=== PATIENT | male | born 1985 | race Caucasian/White ===

== ENCOUNTER 2017-08-01 00:08 | Emergency (ER) | payer OTHER ==
[~2017-08-01] VITALS: Ht 196.8 cm; Wt 113.6 kg
[~2017-08-01 00:08] MED LIST: HYDR-4003 PO
[2017-08-01 00:15] VITALS: BP 127/79; PULSE 91; RESP 16; O2SAT 97
--- NOTE | 2017-08-01 02:00 | ED.REPORT ---
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 He c/o associated eye irritation with erythema onset yesterday afternoon. He denies any other symptoms. Pt reports that he thinks that he has another laceration on his right eye as the pain began shortly after removing his contacts. He states that his eye pressure is variable ranging from 24 to 72 and he takes medication for this. The pt wears the contact in his right eye to help improve his vision. Nursing Notes Stated Complaint: RT EYE INJURY Chief Complaint: Eye Nursing Notes Reviewed: Yes Allergies: Coded Allergies: No Known Allergies (Unverified , 02/21/16) Scheduled PRN Hydrocodone-Acetaminophen 5-325 mg (Hydrocodone-Acetaminophen 5-325 mg) 1 Each Tablet 1-2 TABLET PO Q4H PRN PRN For Pain General Time Seen by MD: 02:00 Chief Complaint Right eye affected Hx Obtained From: Patient Arrived By: Walk-in Sudden in Onset?: No Onset Occurred: Yesterday Symptom Duration: Since onset Location: : Eye right Quality: Painful Radiation: Does not radiate Severity: Current: Moderate Severity: Maximum: Severe Recent Healthcare: No recent doctor visit, No recent hospitalization Similar Sx Previous: Yes Past Medical History Past Medical History Multiple eye lacerations 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 Physical Exam Initial Vital Signs Vital Signs (First) Date Time Temp Pulse Resp B/P Pulse Ox O2 Delivery O2 Flow Rate FiO2 08/01/17 00:15 36.8 91 16 127/79 97 Room Air Initial VS: Reviewed Neck: Supple, Full range of motion Respiratory: Breath sounds normal, Clear to auscultation, No respiratory distress Cardiovascular: Regular rate & rhythm, Heart sounds normal, Intact distal pulses Abdomen / GI: Soft, Non-tender Extremities: Vascular intact, Neuro intact Skin: Warm, Dry, No cyanosis Neurologic: Alert, Oriented, Nonfocal Psychiatric: Mood/affect normal, Behavior normal Head / Eyes: PERRL, EOMI 20/40 bilaterally; right eye is uncorrected. Eye tube in superior temporal aspect of eyes bilaterally. Area of constrast uptake to superior nasal portion of the cornea overlying the iris at approximately 2 o'clock. Pressure of 16 in eyes bilaterally. Punctate keratosis of the cornea is noted with slit lamp. Cornea is clear General/Constitutional: Awake, Alert Procedures Fluorescein eye stain test: Area of contrast uptake to super nasal portion of cornea overlying iris approximately 2 o'clock Time: 02:27 Performed by: ED physician Location: Right eye CHE-PEN: Pressure is 16 in eyes bilaterally Time: 02:32 Performed by: ED physician Location: Eyes bilaterally Slit Lamp Exam Punctate keratosis of the cornea is noted. Cornea is clear. No foreign bodies Time: 02:38 Procedure Performed by: ED physician Which Eye: Right Dilating Agent & Anesthesia: Anesthesia: Tetracaine Re-Eval/Medical Decision Med Decision/Clinical Course 32-year-old male with a history of complex ocular history related to chemical exposure in the presenting with acute right eye pain and irritation similar to previous episodes caused by corneal abrasion/laceration related to his contact use and very dry eyes. He does have a history of glaucoma, which is currently being treated with medication and glaucoma tube shunts. Fluoresceins stain reveals a small defect in the cornea which I believe is the cause of this pain. No foreign bodies are noted. His vision is 20/40 in each eye uncorrected. Treated with erythromycin ointment and he is discharged with the same and instructions to follow-up with his supervisor scrap preparation on Wednesday Source of Hx: Old records Re-Evaluation/Progress #1: Time of Eval: 02:27 Re-Evaluation/Progress Note: Examined pt's eye with his consent. Pt rates his pain as a 5/10 after tetracaine was applied. All questions addressed. Re-Evaluation/Progress #2: Time of Eval: 02:41 Re-Evaluation/Progress Note: Informed pt of plan for discharge. Pt understands and agrees with plan for discharge. F/U instructions and RTER warnings given. All questions addressed. Counseled Regarding: Diagnosis, Need for follow-up, When/why to return to ED Discharge & Departure Primary Impression: Corneal abrasion Encounter type: initial encounter Laterality: right Qualified Code: S05.01XA - Injury of conjunctiva and corneal abrasion without foreign body, right eye, initial encounter Disposition: Home Discharge Condition All VS Reviewed: Yes Condition: Stable Patient Instructions: Corneal Abrasion (ED) Additional Instructions: Thank you for entrusting us with your medical care today. It appears your symptoms are caused by a corneal abrasion, possibly secondary to dry eyes and contact use. Please call Wednesday morning to make an appointment with your supervisor scrap preparation for follow-up. Use erythromycin ointment as directed. Your pain should improve within 24 hours. If you have new or worsening symptoms, please return to the ER. Referrals: [facility] (PCP) Scribe Attestation Portions of this note were transcribed by Lacie Castillo. I, Dr. Sales personally performed the history, physical exam and medical decision-making; I reviewed and confirmed the accuracy of the information in the transcribed note. Signed by: Vandana Case, 08/01/17. copies to: [facility] Falvio Sales DO Aug 01, 2017 02:00 Lacie De Los Santos Aug 01, 2017 02:21
[2017-08-01] MEDS ORDERED: Fluorescein 0.6 mg Ophthalmic Strip ONE (02:24)
[2017-08-01] MEDS ORDERED: Tetracaine 0.5% 4 mL Ophthalmic Solution ONE (02:25)
[2017-08-01 03:07] VITALS: BP 120/79; PULSE 83; RESP 16; O2SAT 97
[2017-08-01] MEDS ORDERED: _Erythromycin 0.5% Oph Oint 3.5 gm AFFECT_EYE SCH (08:30)
== END 2017-08-01 03:13 | disposition home or self-care (01) ==
LOC: SED 00:08
DX: S05.01XA Injury of conjunctiva and corneal abrasion without foreign body, right eye, initial encounter (principal); X58.XXXA Exposure to other specified factors, initial encounter; Y93.89 Activity, other specified; Y92.89 Other specified places as the place of occurrence of the external cause; Y99.8 Other external cause status; L53.9 Erythematous condition, unspecified; H53.129 Transient visual loss, unspecified eye; H40.9 Unspecified glaucoma; Z98.890 Other specified postprocedural states